=== PATIENT | male | born 1995 | race Caucasian/White ===

== ENCOUNTER 2017-08-15 12:59 | Emergency (ER) | payer BC ==
[~2017-08-15] VITALS: Ht 188 cm; Wt 97.7 kg
[2017-08-15 13:03] VITALS: BP 116/70; TEMP 98.2
[2017-08-15 13:51] LABS: HEMATOCRIT 45.8 % (42.0-52.0); HEMOGLOBIN 16.3 g/dl (13.5-18.0); MEAN CELL VOLUME 84 fl (80.0-100.0); MEAN CORPUSCULAR HEMOGLOBIN 30 pg (27.0-31.0); MEAN CORPUSCULAR HGB CONC 36 g/dl (33.0-37.0); MEAN PLATELET VOLUME 10.6 fl (7.4-10.4); PLATELET COUNT 174 K/mm3 (130-400); RED BLOOD COUNT 5.43 M/mm3 (4.20-5.60); REDCELL DISTRIBUTION WIDTH-CV 12.2 % (11.5-14.5)
[2017-08-15 14:01] LABS: CALCIUM 9.6 mg/dL (8.4-10.2); CREATININE, serum 0.79 mg/dL (0.66-1.25); POTASSIUM 4.3 mmol/L (3.4-5.0)
[2017-08-15] MEDS ORDERED: DOXYCYCLINE 10100 MG PO (14:21)
[2017-08-15 14:28] VITALS: PULSE 78
[2017-08-15 14:31] LABS: BAND 3 % (0-10); LYMPHOCYTE 7 % (20.0-51.0); NEUTROPHILS 90 % (42.0-75.2)
[2017-08-15 14:32] LABS: PLATELET ESTIMATE NORMAL (NORMAL)
== END 2017-08-15 14:30 | disposition home or self-care (01) ==
LOC: COL.ER 12:59
PROVIDERS: Physician Assistant
DX: S01.81XA Laceration without foreign body of other part of head, initial encounter (principal); R55 Syncope and collapse; W19.XXXA Unspecified fall, initial encounter; Y92.009 Unspecified place in unspecified non-institutional (private) residence as the place of occurrence of the external cause

== ENCOUNTER 2017-08-22 19:02 | Emergency (ER) | payer BC ==
[~2017-08-22 19:02] MED LIST: DOXYCYCLINE 10100 MG PO
[2017-08-22 19:05] VITALS: BP 126/70; PULSE 62; TEMP 98.1
== END 2017-08-22 19:13 | disposition home or self-care (01) ==
LOC: COL.ER 19:02
DX: S01.112D Laceration without foreign body of left eyelid and periocular area, subsequent encounter (principal); X58.XXXD Exposure to other specified factors, subsequent encounter